=== PATIENT | male | born 1975 | race Two or more races ===

== ENCOUNTER 2025-01-08 17:53 | Emergency (ER) | payer MEDICAID, SELFPAY ==
[2025-01-08 17:57] VITALS: BP 161/103; PULSE 95; RESP 18; TEMP 36.6; O2SAT 97; BMI 17.7
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
[2025-01-08] MEDS: DIPHTH,PERTUSS(ACELL),TET VAC 0.5 ML SYR- ADULT IMi (19:58)
[2025-01-08 20:19] VITALS: BP 147/94; PULSE 87; RESP 17; TEMP 36.6; O2SAT 100
[2025-01-08] MEDS: ACETAMINOPHEN 325 MG TABLET 650 MG PO (20:27)
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
== END 2025-01-08 21:55 ==
PROVIDERS: Emergency Provider Emergency Medicine
DX: Z02.89 Encounter for other administrative examinations (principal); S01.01XA Laceration without foreign body of scalp, initial encounter; W20.8XXA Other cause of strike by thrown, projected or falling object, initial encounter; Y00.XXXA Assault by blunt object, initial encounter; Z91.148 Patient's other noncompliance with medication regimen for other reason; Z23 Encounter for immunization
CPT/HCPCS: 12001; 70450; 90471; 90715; 99284; A9270